=== PATIENT | female | born 1985 | race Hispanic/Latino ===

== ENCOUNTER 2023-02-10 17:58 | Emergency (ER) | payer SELFPAY ==
[~2023-02-10] VITALS: Ht 160 cm; Wt 83.9 kg
[2023-02-10 18:59] LABS: CLARITY,URINE SL CLOUDY (CLEAR); COLOR,URINE YELLOW (YELLOW); KETONES,URINE NEGATIVE (NEGATIVE); LEUKOCYTE ESTERASE ,URINE NEGATIVE (NEGATIVE); NITRITE,URINE NEGATIVE (NEGATIVE); PROTEIN,URINE DIPSTICK NEGATIVE (NEGATIVE); URINE UROBILINOGEN 0.2 mg/dL (0.2 - 1)
[2023-02-10 19:13] LABS: BACTERIA,URINE MODERATE /HPF; EPITHELIAL CELLS,URINE FEW /LPF; RBC,URINE 21-50 /HPF (0-5)
[2023-02-10 20:35] VITALS: O2SAT 99
[2023-02-10] MEDS ORDERED: ULTRAM 50MG50 MG PO (23:25)
== END 2023-02-10 23:30 | disposition home or self-care (01) ==
LOC: ER 18:08
DX: N92.0 Excessive and frequent menstruation with regular cycle (principal); N83.9 Noninflammatory disorder of ovary, fallopian tube and broad ligament, unspecified; R10.30 Lower abdominal pain, unspecified
CPT/HCPCS: 76830; 76856; 81001; 81025; 99283